=== PATIENT | female | born 1965 | race Caucasian/White ===

== ENCOUNTER 2018-10-14 05:41 | Day surgery (SDC) | payer OTHER ==
[2018-10-14] MEDS ORDERED: CEFAZOLIN 1 GM/50 ML (PMX) 50 ML IVPB (06:00)
[2018-10-14] MEDS ORDERED: POLYMYXIN/BACITRACIN 1L IRRIG (06:56)
[2018-10-14] MEDS: CLINDAMYCIN 2% 40 GM VAG CR VAG (07:00)
[2018-10-14] MEDS: LIDOCAINE 1%/EPI (1:100,000) (MDV) 20 ML INJ ×2 (07:00→08:29)
[2018-10-14] MEDS ORDERED: FAMOTIDINE 20 MG INJ (07:19)
[2018-10-14] MEDS ORDERED: FENTAnyl 50 MCG/ML VIAL (07:19)
[2018-10-14] MEDS ORDERED: PROPOFOL 40 ML (07:19)
[2018-10-14] MEDS ORDERED: MIDAZOLAM 1 MG/ML 2 ML INJ (07:19)
[2018-10-14] MEDS ORDERED: LIDOCAINE 2% (SDV) 5 ML INJ (07:19)
[2018-10-14] MEDS ORDERED: DEXAMETHASONE 4 MG/ML 1 ML INJ (07:21)
[2018-10-14] MEDS ORDERED: ONDANSETRON 4 MG INJ (07:21)
[2018-10-14] MEDS ORDERED: HYDROmorphONE 1 MG/5 ML IV SYRINGE IV ×2 (07:30)
[2018-10-14] MEDS ORDERED: morphine (1 MG/ML) 10ML SYRINGE IV ×2 (07:30)
[2018-10-14] MEDS ORDERED: LABETALOL HCL 20MG INJ IV (07:30)
[2018-10-14] MEDS ORDERED: MEPERIDINE 25 MG INJ IV (07:30)
[2018-10-14] MEDS ORDERED: DIPHENHYDRAMINE 50 MG INJ IV (07:30)
[2018-10-14] MEDS ORDERED: ALBUTEROL 0.083% (NEB) 2.5 MG/3 ML AMP HHN (07:30)
[2018-10-14] MEDS ORDERED: OXYCODONE/ACETAMINOPHEN (5/325) TAB PO (07:30)
[2018-10-14] MEDS ORDERED: FENTAnyl 50 MCG/ML VIAL IV (07:30)
[2018-10-14] MEDS ORDERED: SUGAMMADEX SODIUM 200 MG/2 ML VIAL IV (08:55)
[2018-10-14] MEDS ORDERED: PROVENTIL HFA 6.7GM INHALER (09:11)
[2018-10-14] MEDS: FENTAnyl 50 MCG/ML VIAL IV (09:32)
[2018-10-14] MEDS: ONDANSETRON 4 MG INJ IV (09:32)
[2018-10-14] MEDS: OXYCODONE/ACETAMINOPHEN (5/325) TAB PO (10:14)
== END 2018-10-14 11:18 | disposition home or self-care (01) ==
LOC: SDS 05:41
DX: N39.3 Stress incontinence (female) (male) (principal); R35.0 Frequency of micturition; I10 Essential (primary) hypertension; E11.9 Type 2 diabetes mellitus without complications
CPT/HCPCS: 51992; 71045; 82962